=== PATIENT | female | born 1930 | race Caucasian/White ===

== ENCOUNTER 2016-11-14 11:59 | Emergency (ER) | payer MEDICARE, MEDICAID ==
--- NOTE | 2016-11-14 13:01 | ED Physician Chart ---
Chief Complaint/HPI - Patient Information Date Seen:: 11/14/16 Time Seen:: 12:40 Chief Complaint:: pain left large toe History of Present Illness:: patient has had lesion and pain left large toe for two months. No trauma. Allergies:: Allergies Allergy/AdvReac Type Severity Reaction Status Date / Time No Known Allergies Allergy Verified 07/19/16 10:27 Vitals:: Vital Signs - 8 hr 11/14/16 12:29 Temp 98.1 F HR 76 RR 16 BP 127/88 O2 Sat % 97 Review of Systems - Review of Systems General/Constitutional: No fever, No chills Skin: Skin lesions Head: No headache Eyes: No loss of vision ENT: No earache Neck: No neck pain Pulmonary: No SOB, No cough GI: No nausea, No vomiting G/U: No dysuria, No frequency Musculoskeletal: Bone or joint pain Endocrine: No polyuria, No polydipsia Psychiatric: No prior psych history Hematopoietic: No bruising Allergic/Immuno: No urticaria Neurological: No syncope, No focal symptoms Past Medical History - Past Medical History Past Medical History: DM, Other (diet controlled diabetes; glaucoma) Family History: None Social History: Non Smoker, No Alcohol Surgical History: Appendectomy, Cholecystectomy, Hysterectomy, other (cataract; bunions) Psychiatricy History: None Medication: None Family Medical History - Family Member Brother History Unknown: Yes Ethnicity: Living Status: Hx Family Diabetes: Yes Physical Exam - Physical Examination General/Constitutional: Well-developed, well-nourished, Alert Head: Atraumatic Eyes: Lids, conjuctiva normal, PERRL Other Eyes comments:: arcus senilis Other Skin comments:: left large toe: 2/4 red; 7 mm partially crusted superficial ulcer distal plantar surface ENMT: External ears, nose nl, TM canals nl, Nasal exam nl, Lips, teeth, gums nl , Oropharynx nl, Tonsils nl Neck: No nuchal rigidity Respiratory: Nl effort/Exclusion, Clear to Auscultation Cardio Vascular: RRR GI: No tenderness/rebounding/guarding, No organomegaly, No hernia, Normal BS's, Nondistended, No mass/bruits : No CVA tenderness Extremities: Normal digits & nails Neuro/Psych: No focal deficits Misc: Normal back Labs/Radiology/EKG Results - Radiology Results Results: left foot x-ray normal Assessment - Assessment General Assessment: abscess and cellulitis left large toe appear mild ED Septic Shock - . Is Septic Shock (SBP<90, OR Lactate>4 mmol\L) present?: No - <6hrs of presentation: Vital Signs: Vital Signs - 8 hr 11/14/16 12:29 Temp 98.1 F HR 76 RR 16 BP 127/88 O2 Sat % 97 Reassessment (Disposition) - Reassessment Reassessment Condition:: Unchanged - Diagnosis Diagnosis:: superficial abscess left large toe; cellulitis left large toe - Aftercare/Follow up Instructions Aftercare/Follow-Up Instructions:: Refer to Discharge Instructions Medication Prescribed:: Keflex 500 mg QID for 10 days - Patient Disposition Discharge/Transfer:: Home Condition at Disposition:: Stable, Unchanged
--- NOTE | 2016-11-14 13:57 | Diagnostic Imaging Report ---
Left foot (2 views) HISTORY: Pain, cutaneous ulceration No acute abnormalities. No fractures. No radiographic evidence of osteomyelitis. Spur formation noted off the dorsal and plantar aspects the posterior calcaneus. IMPRESSION: 1. No acute bony abnormalities. No fractures or radiographic evidence of osteomyelitis. 2. Calcaneal spur formation
== END 2016-11-14 13:32 | disposition home or self-care (01) ==
LOC: ER 11:59
DX: L03.032 Cellulitis of left toe (principal); E11.9 Type 2 diabetes mellitus without complications
CPT/HCPCS: 73620-TC-LT; Z7502

== ENCOUNTER 2017-11-11 12:17 | Inpatient (IN) | payer MEDICARE, MEDICAID ==
[2017-11-11] MEDS ORDERED: Aspirin 325 mg EC PO ONE (12:22)
[2017-11-11] MEDS ORDERED: NITROGLYCERIN OINT 2% 1 INCH PACKET TP STA (12:32)
[2017-11-11] MEDS ORDERED: Morphine Sulfate 2 mg/mL 1mL Syr IV STA (12:32)
[2017-11-11] MEDS ORDERED: Aspirin 81mg Chewable Tab ONE (12:34)
[2017-11-11] MEDS ORDERED: NITROGLYCERIN OINT 2% 1 INCH PACKET TP ONE (12:34)
[2017-11-11 12:42] LABS: % BASOPHILS 0.5 % (0.0-2.0); % EOSINOPHILS 1.4 % (0.0-5.0); % MONOCYTES 9.9 % (2.0-10.0); % NEUTROPHILS 71.2 % (40.0-80.0); EOSINOPHILE ABSOLUTE 0.1 Th/cmm (0.1-0.4); HEMOGLOBIN 11.8 gm/dL (12-16); LYMPHOCYTE ABSOLUTE 1.3 Th/cmm (1.5-3.0); MEAN CELL VOLUME 87.7 fl (81-100); MEAN CORPUSCULAR HGB CONC 34.2 pg (28.0-36.0); MEAN PLATELET VOLUME 8.8 fl; MONOCYTE ABSOLUTE 0.8 Th/cmm (0.3-1.0); NEUTROPHILE ABSOLUTE 5.7 Th/cmm (1.8-8.0); RED BLOOD COUNT 3.94 Mil/cmm (3.80-5.20); RED CELL DISTRIBUTION WIDTH 12.9 % (11.5-20.0); WHITE BLOOD COUNT 7.9 Th/cmm (4.8-10.8)
--- NOTE | 2017-11-11 12:43 | ED Physician Chart ---
ED Chief Complaint/HPI - Patient Information Date Seen:: 11/11/17 Time Seen:: 12:15 Chief Complaint:: Chest Pain History of Present Illness:: onset x one day of intermittent exertional, pressure chest pain radiating to the neck with dyspnea; pt denies trauma, H/As, S/t, neck pain, cough, Abd. Pain , A/n/V/D/c, fever, chills, or urinary s/s Allergies:: Allergies Allergy/AdvReac Type Severity Reaction Status Date / Time No Known Allergies Allergy Verified 11/11/17 12:27 Vitals:: Vital Signs - 8 hr 11/11/17 12:17 Temp 97.0 F HR 77 RR 16 BP 214/76 O2 Sat % 98 Historian:: Patient, Family Member Review:: Nurse's Note Reviewed ED Review of Systems - Review of Systems General/Constitutional: No fever, No chills, No weight loss, No weakness, No diaphoresis, No edema, No loss of appetite Skin: No skin lesions, No rash, No bruising Head: No headache, No light-headedness Eyes: No loss of vision, No pain, No diplopia ENT: No earache, No nasal drainage, No sore throat, No tinnitus Neck: No neck pain, No swelling, No thyromegaly, No stiffness, No mass noted Cardio Vascular: Chest pain, Palpitations, No PND, No orthopnea, No edema Pulmonary: SOB, No cough, No sputum, No wheezing GI: No nausea, No vomiting, No diarrhea, No pain, No melena, No hematochezia, No constipation, No hematemesis G/U: No dysuria, No frequency, No hematuria, No nacturia Enlisted Advisor: No vaginal discharge, No abnormal vaginal bleed, No contraction Musculoskeletal: No bone or joint pain, No back pain, No muscle pain Endocrine: No polyuria, No polydipsia Psychiatric: No prior psych history, No depression, No anxiety, No suicidal ideation, No homicidal ideation, No auditory hallucination, No visual hallucination Hematopoietic: No bruising, No lymphadenopathy Allergic/Immuno: No urticaria, No angioedema Neurological: No syncope, No focal symptoms, No weakness, No paresthesia, No headache, No seizure, No dizziness, No confusion, No vertigo ED Past Medical History - Past Medical History Obtainable: Yes Past Medical History: HTN, DM, CAD, Dyslipidemia Family History: Diabetes Melitus, HTN Social History: Non Smoker, No Alcohol, No Drug Use, Surgical History: None Psychiatricy History: None Medication: Reviewed Family Medical History - Family Member Brother History Unknown: Yes Ethnicity: Living Status: Hx Family Diabetes: Yes ED Physical Exam - Physical Examination General/Constitutional: Awake, Well-developed, well-nourished, Alert, No distress, GCS 15, Non-toxic appearing, Ambulatory Head: Atraumatic Eyes: Lids, conjuctiva normal, PERRL, EOMI Skin: Nl inspection, No rash, No skin lesions, No ecchymosis, Well hydrated, No lymphadenopathy ENMT: External ears, nose nl, TM canals nl, Nasal exam nl, Lips, teeth, gums nl , Oropharynx nl, Tonsils nl Neck: Nontender, Full ROM w/o pain, No JVD, No nuchal rigidity, No bruit, No mass, No stridor Respiratory: Nl effort/Exclusion, Clear to Auscultation, No Wheeze/Rhonchi/Rales Cardio Vascular: RRR, No murmur, gallop, rubs, NL S1 S2, Carotid/Femoral/Distal pulses equal bilaterally GI: No tenderness/rebounding/guarding, No organomegaly, No hernia, Normal BS's, Nondistended, No mass/bruits, No McBurney tenderness : No CVA tenderness Extremities: No tenderness or effusion, Full ROM, normal strength in all extremities, No edema, Normal digits & nails Neuro/Psych: Alert/oriented, DTR's symmetric, Normal sensory exam, Normal motor strength, Judgement/insight normal, Mood normal, Normal gait, No focal deficits Misc: Normal back, No paraspinal tenderness ED Labs/Radiology/EKG Results - Lab Results Comments:: BNP: 197 - Radiology Results Comments:: CXR: ? old infiltrate/mass RML - EKG Interpretations EKG Time:: 12:20 Rate & Rhythm: 74; NSR Comments:: PACs; LVH; non-specific st-t changes ED Septic Shock - . Is Septic Shock (SBP<90, OR Lactate>4 mmol\L) present?: No - <6hrs of presentation: Vital Signs: Vital Signs - 8 hr 11/11/17 12:17 Temp 97.0 F HR 77 RR 16 BP 214/76 O2 Sat % 98 ED Reassessment (Disposition) - Reassessment Reassessment Condition:: Improved - Diagnosis Diagnosis:: Chest Pain; Dyspnea; CHF; Unstable Angina; Anemia; Hyponatremia; DM; HTN - Aftercare/Follow up Instructions Aftercare/Follow-Up Instructions:: Counseled pt regarding lab results/diagnosis & need follow up, Counseled pt & family regarding lab results/diagnosis & need follow up - Patient Disposition Discharge/Transfer:: Acute Care w/in this hosp Accepting Physician:: Dr. Escamilla Time Called:: 1400 Time Responded:: 14:00 Admitted to:: Telemetry Spoke to:: Dr. Escamilla Admitting Medical Physician:: Dr. Escamilla Condition at Disposition:: Stable, Improved
[2017-11-11] MEDS ORDERED: Morphine Sulfate 2 mg/mL 1mL Syr ONE (12:46)
[2017-11-11 12:51] LABS: INR 1.02 (0.5-1.4); PROTHROMBIN TIME (TEST) 10.6 SECONDS (9.5-11.5)
[2017-11-11 12:54] LABS: ALB/GLOB RATIO 1.7 (1.0-1.8); ALBUMIN 4.1 gm/dL (3.7-5.3); ALKALINE PHOSPHATASE 63 U/L (34-104); ANION GAP 11.3 (7.0-16.0); BILIRUBIN,TOTAL 0.3 mg/dL (0.3-1.0); BUN - UREA NITROGEN 8 mg/dL (7-25); CALCIUM SERUM 8.9 mg/dL (8.6-10.3); CARBON DIOXIDE 25.4 mEq/L (21.0-31.0); CHLORIDE 102 mEq/L (98-107); CHOLESTEROL 155 mg/dL (<200); CREATININE - SERUM 0.6 mg/dL (0.6-1.2); CREATININE KINASE 22 U/L (30-223); GLUCOSE 116 mg/dL (70-105); HDL -HIGH DENSITY LIPOPROTEIN 44 mg/dL (23-92); POTASSIUM SERUM 3.7 mEq/L (3.5-5.1); SGOT 10 U/L (13-39); SGPT/ALT 7 U/L (7-52); SODIUM SERUM 135 mEq/L (136-145); TOTAL PROTEIN,SERUM 6.5 gm/dL (6.0-8.3); TRIGLYCERIDES 204 mg/dL (<150)
--- NOTE | 2017-11-11 12:58 | Diagnostic Imaging Report ---
CHEST X-RAY: AP view INDICATION: pain COMPARISON: 07/19/2016 FINDINGS: Chronic lung changes are seen with bronchovascular crowding and elevation of the right hemidiaphragm. No focal consolidation or effusions. Borderline prominent heart is noted. Degenerative changes on the shoulders are noted. IMPRESSION: Chronic lung changes with bronchovascular crowding and elevation of the right hemidiaphragm. No focal consolidation identified.
[2017-11-11 13:18] LABS: HEMATOCRIT 34.6 % (41.0-60); PLATELET COUNT 206 Th/cmm (150-400)
[2017-11-11] MEDS ORDERED: IOHEXOL 300mgI/mL 100 ML VIAL PO ONE (14:01)
--- NOTE | 2017-11-11 15:01 | Diagnostic Imaging Report ---
CT abdomen and pelvis with IV and oral intravenous contrast Indication: Abdominal pain Comparison: Previous CT abdomen and pelvis on 07/19/2016, Technique: Axial images were obtained from the lung bases to the bilateral proximal femurs with IV and oral IV contrast. Coronal reconstructions were made. total DLP: 474, CTDI9.6 FINDINGS: Hypoventilatory and atelectatic changes of the lung bases are noted. Exam is limited due to motion. No evidence of focal hepatic lesions. No radiopaque gallstones identified. No focal splenic lesions. Limited assessment of pancreas demonstrate no focal lesions. Mild pancreatic gland atrophy is noted. No focal adrenal lesions. No evidence of hydronephrosis or focal renal lesions. Mild thickening of the anterior aspect of the urinary bladder wall is noted. Diverticulosis is noted without definite evidence of diverticulitis. The Appendix is not well-visualized. No evidence of free fluid or free air. These atherosclerosis is noted. Advanced degenerative change of the spine are noted. There is 2 mm anterolisthesis of L4 on L5 likely due to severe facet arthropathy. IMPRESSION: Limited exam due to motion. Diverticulosis without evidence of diverticulitis. Mild thickening of the anterior urinary bladder wall which may due to underlying infectious or inflammatory or less likely infiltrative process. The appendix is not visualized. No evidence of free fluid. Heavy atherosclerotic vascular disease. Advanced degenerative changes.
[2017-11-11] MEDS ORDERED: Pneumococcal Vaccine 0.5 mL Vial IM ONE (19:08)
[2017-11-11] MEDS: Acetaminophen 500 MG TAB PO PRN (19:11)
--- NOTE | 2017-11-12 01:50 | History & Physical ---
ADMIT DATE: CHIEF COMPLAINT: Epigastric/substernal pain. HISTORY OF PRESENT ILLNESS: An 86-year-old female with history of hypertension who lives at home, was brought into the Emergency Room for evaluation of the epigastric/substernal chest pain that started yesterday. Denies any associated nausea. No vomiting, no diarrhea, no constipation, no fever, no chills. Denies any prior cardiac history. The patient was evaluated in the Emergency Room, subsequently admitted to the hospital for evaluation and treatment. PAST MEDICAL HISTORY: Diabetes mellitus, hypertension. PAST SURGICAL HISTORY: Denies. FAMILY HISTORY: Denies. SOCIAL HISTORY: Lives at home. Denies any alcohol, tobacco, or street drug use. CURRENT MEDICATIONS: At home, the patient states she is not taking any medications. REVIEW OF SYSTEMS: As per HPI. A 12-point system reviewed and negative. PHYSICAL EXAMINATION: VITAL SIGNS: Temperature 99.7, pulse 80 blood pressure is 185/70, oxygen saturation is 96% on room air. GENERAL APPEARANCE: The patient does not seem in acute distress. HEENT: Unremarkable. HEART: S1, S2 normal. LUNGS: Clear to auscultation bilaterally. ABDOMEN: Soft, nontender. No guarding, no rigidity. NEUROLOGIC: The patient is alert, awake, follows command. Moves all extremities. No focal deficits noted. EXTREMITIES: No edema noted. AVAILABLE LABORATORY DATA: WBC 7.9, hemoglobin 11.9, hematocrit 34.6, platelets 206. Sodium 134, potassium 3.7, BUN 8, creatinine 0.6. AST 10, ALT 7. Triglycerides 204, LDL 96. BNP is 197. Chest x-ray, no acute significant findings noted. CT abdomen and pelvis negative for any acute significant findings. ASSESSMENT: 1. Epigastric/substernal pain. 2. Hypertension. 3. Diabetes mellitus, diet controlled. PLAN: The patient admitted to tele unit. Serial troponins will be obtained. Cardiology has been consulted. Ultrasound of the abdomen ordered. CT abdomen findings reviewed. The patient started on lisinopril for blood pressure. Monitor vital signs closely. Symptomatic treatment has begun. Discussed with the patient regarding condition and plan of care. JOB# [id number] ERNA
--- NOTE | 2017-11-12 14:33 | General Progress Note ---
Subjective - Review of Systems Service Date: 11/12/17 Subjective: patient seen and examined feels better denied chest pain or sob or dizziness or any other complaints Objective - Results Result Diagrams: 11/11/17 12:30 11/11/17 12:30 Recent Labs: Laboratory Last Values WBC 7.9 Th/cmm (4.8-10.8) 11/11/17 12:30 RBC 3.94 Mil/cmm (3.80-5.20) 11/11/17 12:30 Hgb 11.8 gm/dL (12-16) L 11/11/17 12:30 Hct 34.6 % (41.0-60) L D 11/11/17 12:30 MCV 87.7 fl (81-100) 11/11/17 12:30 MCH 30.0 pg (27.0-31.0) 11/11/17 12:30 MCHC Differential 34.2 pg (28.0-36.0) 11/11/17 12:30 RDW 12.9 % (11.5-20.0) 11/11/17 12:30 Plt Count 206 Th/cmm (150-400) D 11/11/17 12:30 MPV 8.8 fl 11/11/17 12:30 Neutrophils % 71.2 % (40.0-80.0) 11/11/17 12:30 Lymphocytes % 17.0 % (20.0-50.0) L 11/11/17 12:30 Monocytes % 9.9 % (2.0-10.0) 11/11/17 12:30 Eosinophils % 1.4 % (0.0-5.0) 11/11/17 12:30 Basophils % 0.5 % (0.0-2.0) 11/11/17 12:30 PT 10.6 SECONDS (9.5-11.5) 11/11/17 12:30 INR 1.02 (0.5-1.4) 11/11/17 12:30 Sodium 135 mEq/L (136-145) L 11/11/17 12:30 Potassium 3.7 mEq/L (3.5-5.1) 11/11/17 12:30 Chloride 102 mEq/L (98-107) 11/11/17 12:30 Carbon Dioxide 25.4 mEq/L (21.0-31.0) 11/11/17 12:30 Anion Gap 11.3 (7.0-16.0) 11/11/17 12:30 BUN 8 mg/dL (7-25) 11/11/17 12:30 Creatinine 0.6 mg/dL (0.6-1.2) 11/11/17 12:30 Est GFR ( Amer) TNP 11/11/17 12:30 Est GFR (Non-Af Amer) TNP 11/11/17 12:30 BUN/Creatinine Ratio 13.3 11/11/17 12:30 Glucose 116 mg/dL (70-105) H 11/11/17 12:30 POC Glucose 105 MG/DL (70 - 105) 11/12/17 11:12 Calcium 8.9 mg/dL (8.6-10.3) 11/11/17 12:30 Total Bilirubin 0.3 mg/dL (0.3-1.0) 11/11/17 12:30 AST 10 U/L (13-39) L 11/11/17 12:30 ALT 7 U/L (7-52) 11/11/17 12:30 Alkaline Phosphatase 63 U/L (34-104) 11/11/17 12:30 Creatine Kinase 22 U/L (30-223) L 11/11/17 12:30 Troponin I 0.01 ng/mL (0.01-0.05) 11/12/17 04:00 B-Natriuretic Peptide 197.0 pg/mL (5.0-100.0) H 11/11/17 12:30 Total Protein 6.5 gm/dL (6.0-8.3) 11/11/17 12:30 Albumin 4.1 gm/dL (3.7-5.3) 11/11/17 12:30 Globulin 2.4 gm/dL 11/11/17 12:30 Albumin/Globulin Ratio 1.7 (1.0-1.8) 11/11/17 12:30 Triglycerides 204 mg/dL (<150) H 11/11/17 12:30 Cholesterol 155 mg/dL (<200) 11/11/17 12:30 LDL Cholesterol Direct 96 mg/dL (75-193) 11/11/17 12:30 HDL Cholesterol 44 mg/dL (23-92) 11/11/17 12:30 - Physical Exam Vitals and I&O: Vital Signs Temp 97.2 F 11/12/17 08:00 Pulse 77 11/12/17 09:00 Resp 17 11/12/17 11:19 BP 158/58 11/12/17 09:00 Pulse Ox 95 11/12/17 08:00 Intake & Output 11/11/17 11/12/17 11/12/17 18:59 06:59 18:59 Intake Total 500 50 Balance 500 50 Weight (lbs) 70.307 kg 71.758 kg Intake: Oral 500 50 Other: # Voids 3 3 Active Medications: Current Medications Acetaminophen (Tylenol Extra Strength) 500 mg PO Q4HR PRN PRN Reason: Pain (Mild) Stop: 01/10/18 18:18 Last Admin: 11/11/17 19:11 Dose: 500 mg Lisinopril (Zestril) 10 mg PO DAILY ELLYN Last Admin: 11/12/17 09:00 Dose: 10 mg Ondansetron HCl (Zofran Odt) 4 mg PO Q6HR PRN PRN Reason: Nausea Stop: 01/10/18 18:18 Cardiovascular: Regular rate Lungs: Clear to auscultation Abdomen: Soft, no Tender Assessment/Plan - Problem List Patient Problems: All Active Problems Constipation (Acute ~07/19/16) K59.00 Ear ache (Acute) H92.09 LEFT GREAT TOE SWELLING AND PAIN (Acute) - Assessment Assessment: Substernal / Epigastric pain r/o ACS HTN - Plan Plan: Per cardiology no further work up needed Monitor BP F/u on US ABD DC Home today if no issue DC Plan discussed with nursing staff
--- NOTE | 2017-11-12 17:16 | Cardiology ---
11/12/2017 PROCEDURE: Echocardiogram. The patient of Dr. Andi Vanegas. M-MODE ECHOCARDIOGRAM: Mitral valve, anterior leaflet of mitral valve shows normal excursion, EF velocity. Posterior leaflet of mitral valve shows normal excursion. Left ventricular posterior wall shows increased thickness, normal excursion. Interventricular septum shows increased thickness, normal excursion, hypertrophy of the left ventricle, ejection fraction 55%. Left atrium enlarged 4.2 cm. Aortic root shows normal dimension, normal excursion of aortic leaflets. CONCLUSION: Hypertrophy of the left ventricle, left atrial enlargement, ejection fraction 55%. 2D ECHO: Long axis view showed normal sized left ventricle with hypertrophy of the left ventricle. Left atrium enlarged. Aortic root shows normal dimension, normal excursion of aortic leaflets. Short axis view of mitral valve normal. Short axis view of aortic valve normal. Apical four chamber view showed normal sized left ventricle with hypertrophy of the left ventricle. Left atrium enlarged. Right ventricular cavity, right atrium normal. No peripheral effusion. Ejection fraction 55%. CONCLUSION: Minimal hypertrophy of the left ventricle. Left atrial enlargement, ejection fraction 55%. Doppler study shows mild tricuspid regurgitation, trace pulmonary regurgitation. Right ventricular systolic pressure 32 mmHg. JOB# [id number]
[2017-11-12] MEDS: Acetaminophen 500 MG TAB PO PRN (22:24)
--- NOTE | 2017-11-13 07:59 | Diagnostic Imaging Report ---
Abdominal ultrasound HISTORY: Pain The exam of the liver demonstrates suggestion of an increase in parenchymal echogenicity. The finding may be associated with fatty infiltration and should be correlated with liver function tests. No focal lesions. The gallbladder is somewhat distended. No intraluminal abnormalities are seen in the gallbladder. No calculi identified. No biliary dilatation. The pancreas cannot be seen due to bowel gas. The kidneys appear normal bilaterally. The spleen is normal in size. No other retroperitoneal or intra-abdominal abnormalities. IMPRESSION: 1. Suggestion of an increase in hepatic parenchymal echogenicity. The finding may be associated with fatty infiltration and should be correlated with liver function tests. 2. Somewhat distended gallbladder. However, no calculi identified.
--- NOTE | 2017-11-13 12:38 | Diagnostic Imaging Report ---
Radionuclide biliary scan (HIDA scan) HISTORY: Gallbladder distention, pain 5.1 mCi technetium labeled biliary agent was used in the exam. The exam demonstrates normal hepatic uptake and clearance. There is excretion of nuclide into the gallbladder, common bile duct, and small bowel. IMPRESSION: Normal examination
--- NOTE | 2017-11-13 17:03 | Consultation ---
DATE OF CONSULTATION: 11/12/2017 PATIENT OF: Dr. Guilherme Escamilla. HISTORY AND PHYSICAL: This is an 86-year-old female patient who came to the Emergency Room from home complaining of pain in epigastric area radiating back to the chest. No history of PND, orthopnea. PAST MEDICAL HISTORY: Diabetes mellitus type 2, hyperlipidemia, hypertension, diverticulosis. FAMILY HISTORY: Unremarkable. SOCIAL HISTORY: No history of smoking, alcohol abuse. ALLERGIES: No known allergies. PHYSICAL EXAMINATION: VITAL SIGNS: Blood pressure 150/80, pulse 70, respirations 20. HEAD: Normocephalic. No lumps or bumps. EYES: Pupils equal, reactive to light. Fundi show AV nicking, sclerae white, conjunctivae pink. NECK: Carotid 2+. Normal upstroke. JVD flat. Thyroid not palpable. Lymph nodes not palpable. CHEST: Shows increased AP diameter. No kyphosis, scoliosis. LUNGS: Bilateral bronchovesicular breath sounds. HEART: PMI fifth intercostal space with lateral to midclavicular line. S1, S2. No S3, S4, soft systolic murmur. ABDOMEN: Soft. Liver, spleen not palpable. No organomegaly. Bowel sounds active. NEUROLOGIC: Unremarkable. EXTREMITIES: Peripheral pulses 2+. No pedal edema. CLINICAL IMPRESSION: Abdominal pain, rule out cholecystitis, peptic ulcer disease, atypical chest pain, diabetes mellitus type 2, hypertension, hyperlipidemia, diverticulosis, osteoporosis. PLAN: The patient to have troponin level, EKG, echocardiogram, CT scan of the abdomen and ultrasound of the abdomen. [facility]# [id number]
--- NOTE | 2017-11-13 21:29 | General Progress Note ---
Subjective - Review of Systems Service Date: 11/13/17 Subjective: patient seen and examined feels better denied chest pain or sob or abd pain Objective - Results Result Diagrams: 11/11/17 12:30 11/11/17 12:30 Recent Labs: Laboratory Last Values WBC 7.9 Th/cmm (4.8-10.8) 11/11/17 12:30 RBC 3.94 Mil/cmm (3.80-5.20) 11/11/17 12:30 Hgb 11.8 gm/dL (12-16) L 11/11/17 12:30 Hct 34.6 % (41.0-60) L D 11/11/17 12:30 MCV 87.7 fl (81-100) 11/11/17 12:30 MCH 30.0 pg (27.0-31.0) 11/11/17 12:30 MCHC Differential 34.2 pg (28.0-36.0) 11/11/17 12:30 RDW 12.9 % (11.5-20.0) 11/11/17 12:30 Plt Count 206 Th/cmm (150-400) D 11/11/17 12:30 MPV 8.8 fl 11/11/17 12:30 Neutrophils % 71.2 % (40.0-80.0) 11/11/17 12:30 Lymphocytes % 17.0 % (20.0-50.0) L 11/11/17 12:30 Monocytes % 9.9 % (2.0-10.0) 11/11/17 12:30 Eosinophils % 1.4 % (0.0-5.0) 11/11/17 12:30 Basophils % 0.5 % (0.0-2.0) 11/11/17 12:30 PT 10.6 SECONDS (9.5-11.5) 11/11/17 12:30 INR 1.02 (0.5-1.4) 11/11/17 12:30 Sodium 135 mEq/L (136-145) L 11/11/17 12:30 Potassium 3.7 mEq/L (3.5-5.1) 11/11/17 12:30 Chloride 102 mEq/L (98-107) 11/11/17 12:30 Carbon Dioxide 25.4 mEq/L (21.0-31.0) 11/11/17 12:30 Anion Gap 11.3 (7.0-16.0) 11/11/17 12:30 BUN 8 mg/dL (7-25) 11/11/17 12:30 Creatinine 0.6 mg/dL (0.6-1.2) 11/11/17 12:30 Est GFR ( Amer) TNP 11/11/17 12:30 Est GFR (Non-Af Amer) TNP 11/11/17 12:30 BUN/Creatinine Ratio 13.3 11/11/17 12:30 Glucose 116 mg/dL (70-105) H 11/11/17 12:30 POC Glucose 105 MG/DL (70 - 105) 11/12/17 11:12 Calcium 8.9 mg/dL (8.6-10.3) 11/11/17 12:30 Total Bilirubin 0.3 mg/dL (0.3-1.0) 11/11/17 12:30 AST 10 U/L (13-39) L 11/11/17 12:30 ALT 7 U/L (7-52) 11/11/17 12:30 Alkaline Phosphatase 63 U/L (34-104) 11/11/17 12:30 Creatine Kinase 22 U/L (30-223) L 11/11/17 12:30 Troponin I 0.01 ng/mL (0.01-0.05) 11/12/17 04:00 B-Natriuretic Peptide 197.0 pg/mL (5.0-100.0) H 11/11/17 12:30 Total Protein 6.5 gm/dL (6.0-8.3) 11/11/17 12:30 Albumin 4.1 gm/dL (3.7-5.3) 11/11/17 12:30 Globulin 2.4 gm/dL 11/11/17 12:30 Albumin/Globulin Ratio 1.7 (1.0-1.8) 11/11/17 12:30 Triglycerides 204 mg/dL (<150) H 11/11/17 12:30 Cholesterol 155 mg/dL (<200) 11/11/17 12:30 LDL Cholesterol Direct 96 mg/dL (75-193) 11/11/17 12:30 HDL Cholesterol 44 mg/dL (23-92) 11/11/17 12:30 - Physical Exam Vitals and I&O: Vital Signs Temp 96.5 F 11/13/17 18:00 Pulse 91 11/13/17 18:22 Resp 17 11/13/17 18:00 BP 143/50 11/13/17 18:22 Pulse Ox 98 11/13/17 18:00 Intake & Output 11/13/17 11/13/17 11/14/17 06:59 18:59 06:59 Intake Total 400 Balance 400 Weight (lbs) 71.668 kg Intake: Oral 400 Other: # Voids 3 # Bowel Movements 1 Cardiovascular: Regular rate Lungs: Clear to auscultation Abdomen: Soft, no Tender Assessment/Plan - Problem List Patient Problems: All Active Problems Constipation (Acute ~07/19/16) K59.00 Ear ache (Acute) H92.09 LEFT GREAT TOE SWELLING AND PAIN (Acute) - Assessment Assessment: Substernal / Epigastric pain ACS ruled out Left sided abd pain ? constipation ? diverticulosis HTN - Plan Plan: HIDA negative GI and Cardiology cleared patient for home discharge I spoke with pt's daughter over the phone and discussed patient's condition and plan of care She understood and agreed DC plan discussed with the patient and nursing staff Patient was advised to follow up with me in the office in one week
--- NOTE | 2017-11-14 17:48 | Consultation ---
DATE OF CONSULTATION: 11/13/2017 REASON FOR CONSULTATION: Abdominal pain. HISTORY OF PRESENT ILLNESS: This consult was obtained through the courtesy of Dr. Escamilla for this 86-year-old with history of hypertension, diabetes, admitted to the hospital because of abdominal pain. Pain started 4-5 days ago. Pain was on the left upper quadrant. Pain did not show any radiation. The patient came to the hospital, had a CAT scan, showed distended gallbladder, underwent HIDA scan which was negative. GI consult was called in for further evaluation. The patient at this time feels better. There is no nausea, vomiting. No hematemesis, melena or hematochezia. PAST MEDICAL HISTORY: Diabetes, hypertension. PAST SURGICAL HISTORY: She had hysterectomy. She had knee surgery. SOCIAL HISTORY: Nonsmoker, nonalcoholic, non-IV drug abuser. FAMILY HISTORY: Noncontributory. REVIEW OF SYSTEMS: She has lost a few pounds, about 50 pounds over the last year. At this time, there is no more nausea, vomiting, abdominal pain, diarrhea, constipation. PHYSICAL EXAMINATION: GENERAL: The patient is awake, oriented to self, place, and time, in no acute distress. HEENT: Pupils reactive to light and accommodation. Extraocular muscles intact. Sclerae are anicteric. Conjunctivae not pale. Oral cavity, no lesion. NECK: Supple, no jugular venous distention, no carotid lymph node. CHEST: Good respiratory movements. LUNGS: Clear to auscultation. CARDIOVASCULAR: Regular rate and rhythm. No murmur or gallop. ABDOMEN: Soft, positive bowel sounds. Abdomen was not tender. EXTREMITIES: Lower extremities, no edema. CENTRAL NERVOUS SYSTEM: Grossly nonfocal. LABORATORY DATA: H and H of 11.8 and 34.6 with platelets of 206. Chemistry was unremarkable. CAT scan showed diverticulosis, thickening of the bladder wall. Ultrasound showed increase in hepatic parenchymal echogenicity, distended gallbladder. HIDA scan was negative. IMPRESSION: An 86-year-old with abdominal pain. ASSESSMENT: Abdominal pain seems to have resolved, could have been due to constipation, could be mild ileus, could be IBS, could be peptic ulcer disease even though the case is not typical. At this time, the patient is pain free. She is an 86-year-old. She is anxious to go home. RECOMMENDATIONS: 1. Advance diet. 2. Discharge home. 3. Follow up as an outpatient, then further recommendations to follow. Business card has been given to the patient and her daughter and above has been discussed with them. Other medical problems such as hypertension, diabetes as per Dr. Escamilla. Thank you, Dr. Escamilla for allowing me to participate in the care of this patient. If you have any further questions, please let me know. [facility]# [id number]
--- NOTE | 2017-12-11 19:52 | Discharge Summary ---
DATE OF DISCHARGE: 11/13/2017 FINAL DIAGNOSES: 1. Atypical chest pain. 2. Epigastric pain. 3. Hypertension. 4. Constipation. HOSPITAL COURSE: This is an 87-year-old female admitted for evaluation of the epigastric/substernal pain, seen by edge burnisher uppers. No acute cardiac events were identified. The patient continued to have persistent epigastric pain, seen by GI. HIDA scan was done, which was negative for any significant findings. Abdominal ultrasound was also negative. The patient was given constipation treatment. After clinical improvement with agreement of specialty patient was cleared for discharge with outpatient GI followup. Overall hospitalization was uneventful. DISCHARGE CONDITION: Stable. DISCHARGE MEDICATIONS: Please see medication reconciliation. DISCHARGE FOLLOWUP: The patient will be followed by primary MD and GI as an outpatient. PSYCHIATRIC# [id number] MTDD
== END 2017-11-13 18:00 | disposition home or self-care (01) | DRG 313 ==
LOC: ER 12:17 → TELE 16:32 → MSI 11-13 13:57
PROVIDERS: ADMIT Family Medicine; ATTEND Family Medicine
DX: R07.89 Other chest pain (principal); I25.110 Atherosclerotic heart disease of native coronary artery with unstable angina pectoris; I50.9 Heart failure, unspecified; D64.9 Anemia, unspecified; E87.1 Hypo-osmolality and hyponatremia; E11.9 Type 2 diabetes mellitus without complications; E78.5 Hyperlipidemia, unspecified; K57.90 Diverticulosis of intestine, part unspecified, without perforation or abscess without bleeding; K59.00 Constipation, unspecified; K27.9 Peptic ulcer, site unspecified, unspecified as acute or chronic, without hemorrhage or perforation; M81.0 Age-related osteoporosis without current pathological fracture; K82.8 Other specified diseases of gallbladder; Z90.710 Acquired absence of both cervix and uterus; Z83.3 Family history of diabetes mellitus; Z82.49 Family history of ischemic heart disease and other diseases of the circulatory system
CPT/HCPCS: 36415-UA; 71045-TC; 76700-TC; 78226-TC; 80053-TC; 80061-TC; 82550-TC; 82948-90; 83880-TC; 84484-TC; 85025-TC; 85610-TC; 93005; 94760; 96374; A9537; J2270; Q9967; Z7610